=== PATIENT | female | born 1980 | race Caucasian/White ===

== ENCOUNTER 2018-11-17 21:16 | Emergency (ER) | payer BC ==
[~2018-11-17] VITALS: Ht 167.6 cm; Wt 121.6 kg
[2018-11-17] MEDS ORDERED: SYNTHROID125 MC1 PO (21:26)
[2018-11-17 22:26] LABS: ABSOLUTE EOSINOPHILS 0.1 thou/uL (0.0-0.7); ABSOLUTE LYMPHOCYTES 2.3 thou/uL (0.8-5.3); ABSOLUTE MONOCYTES 0.5 thou/uL (0.0-1.2); ABSOLUTE NEUTROPHILS 5.6 thou/uL (1.6-8.1); BASOPHILS 0.4 %; EOSINOPHILS 1.6 %; HEMATOCRIT 38.1 % (37.0-47.0); HEMOGLOBIN 12.1 gm/dL (12.0-15.0); LYMPHOCYTES 26.9 %; MCH 22.4 pg (26.0-34.0); MCHC 31.6 g/dL (28.0-37.0); MONOCYTES 5.8 %; MPV 9.1 fl. (7.2-11.1); NUCLEATED RBCS 0 /100WBC; PLATELET COUNT* 283 thou/uL (150-400); POLYS 65.3 %; RBC 5.37 mil/uL (4.20-5.00); RDW-CV 18.4 % (10.5-14.5); WBC 8.6 thou/uL (4.0-11.0)
[2018-11-17 22:30] LABS: CREATININE 0.7 mg/dL (0.6-1.3); POTASSIUM 3.5 mmol/L (3.5-5.1)
[2018-11-17 22:34] LABS: ALBUMIN 3.3 g/dL (3.4-5.0); TOTAL BILIRUBIN 0.4 mg/dL (<0.1-1.0); TOTAL PROTEIN 7.9 g/dL (6.4-8.2)
[2018-11-17] MEDS ORDERED: AUGMENTIN 875-1 EACH PO (23:17)
[2018-11-17 23:34] LABS: ANISOCYTOSIS 1+; HYPOCHROMASIA 2+; MICROCYTES 2+; PLATELET ESTIMATE ADEQUATE
[2018-11-17 23:49] VITALS: BP 143/74
== END 2018-11-17 23:51 | disposition home or self-care (01) ==
LOC: M.ERS 21:16
PROVIDERS: Nurse Practitioner Family
DX: J03.90 Acute tonsillitis, unspecified (principal); Z88.8 Allergy status to other drugs, medicaments and biological substances; Z98.890 Other specified postprocedural states; Z90.49 Acquired absence of other specified parts of digestive tract